=== PATIENT | female | born 1965 | race Caucasian/White ===

== ENCOUNTER 2018-03-07 16:15 | Emergency (ER) | payer OTHER ==
[~2018-03-07] VITALS: Ht 170.2 cm; Wt 83.9 kg
--- NOTE | ~2018-03-07 | PROC ---
[address] [address] PROCEDURE REPORT Name: MATTHIEU CARDONA Room: [facility] Navya#: [id number] Admission: 03/07/18 Attend Phys: Discharge: 03/07/18 Date of : 67 Report #: [id number] THIS REPORT FOR: //name// For GI report, please see the Provation report in Perceptive 7 content. By: 1535Medical Records Staff [facility] /SHAHEED
[2018-03-07] MEDS ORDERED: ATENOLOL 25 MG25 M1 PO (16:19)
[2018-03-07] MEDS ORDERED: PAXIL 20 MG TAB20 MG PO (16:41)
[2018-03-07] MEDS ORDERED: SYNTHROID25 MC1 PO (16:41)
[2018-03-07 16:58] LABS: ABSOLUTE BASOPHILS 0.1 thou/uL (0.0-0.2); ABSOLUTE EOSINOPHILS 0.2 thou/uL (0.0-0.7); ABSOLUTE LYMPHOCYTES 1.9 thou/uL (0.8-5.3); ABSOLUTE MONOCYTES 0.7 thou/uL (0.0-1.2); ABSOLUTE NEUTROPHILS 5.8 thou/uL (1.6-8.1); BASOPHILS 1.5 %; EOSINOPHILS 2.2 %; HEMATOCRIT 40.6 % (37.0-47.0); HEMOGLOBIN 13.5 gm/dL (12.0-15.0); LYMPHOCYTES 21.9 %; MCH 28.9 pg (26.0-34.0); MCHC 33.2 g/dL (28.0-37.0); MCV 87.1 fL (80.0-100.0); MONOCYTES 7.6 %; NUCLEATED RBCS 0 /100WBC; PLATELET COUNT* 440 thou/uL (150-400); POLYS 66.8 %; RBC 4.66 mil/uL (4.20-5.00); RDW-CV 13.3 % (10.5-14.5); WBC 8.6 thou/uL (4.0-11.0)
[2018-03-07 17:04] LABS: ANION GAP 5 mmol/L (7-16); BUN 11 mg/dL (7-18); CALCIUM 8.3 mg/dL (8.5-10.1); CHLORIDE 102 mmol/L (98-107); CO2 28 mmol/L (21-32); CREATININE 0.7 mg/dL (0.6-1.3); GLUCOSE 112 mg/dL (70-99); POTASSIUM 3.5 mmol/L (3.5-5.1); SODIUM 135 mmol/L (136-145)
[2018-03-07 17:11] LABS: ALBUMIN 3.5 g/dL (3.4-5.0); ALKALINE PHOSPHATASE 112 U/L (46-116); LIPASE 137 U/L (73-393); SGOT 18 U/L (15-37); SGPT 17 U/L (30-65); TOTAL BILIRUBIN 0.3 mg/dL (<0.1-1.0); TOTAL PROTEIN 7.3 g/dL (6.4-8.2); TROPONIN-I LEVEL <0.06 ng/mL (<0.06)
[2018-03-07 17:21] LABS: URINE BILIRUBIN NEGATIVE (Negative); URINE BLOOD 1+ (Negative); URINE CLARITY HAZY; URINE COLOR YELLOW; URINE GLUCOSE-RANDOM NEGATIVE (Negative); URINE KETONES NEGATIVE (Negative); URINE LEUKOCYTES 1+ (Negative); URINE NITRITE NEGATIVE (Negative); URINE PROTEIN NEGATIVE (Negative); URINE UROBILINOGEN 0.2 E.U./dl (0.2-1.0)
[2018-03-07 17:28] LABS: SQUAMOUS >10 Many /LPF (0-3)
[2018-03-07 17:29] LABS: BACTERIA None Seen /HPF (None Seen); CASTS None Seen /LPF (None Seen); CRYSTALS None Seen /LPF (None Seen); MUCUS 0-3 Light strn/LPF (None Seen); URINE RBC 0-2 Rare /HPF (0-2); URINE WBC 0-5 Rare /HPF (0-5)
[2018-03-07 18:17] LABS: INR 0.9; PROTIME 9.4 Seconds (9.20-11.50)
[2018-03-07 18:37] VITALS: BP 131/76
--- NOTE | 2018-03-09 12:48 | EKG ---
[place] [address] ELECTROCARDIOGRAM REPORT Name: MATTHIEU CARDONA Room: [facility]#: [id number] Admission: 03/07/18 Attend Phys: Discharge: 03/07/18 Date of : 67 Report #: [id number] THIS REPORT FOR: //name// [facility] ED Test Date: 2018-03-07 Test Time: 16:59:14 Pat Name: MATTHIEU CARDONA Department: Room: Gender: F [employer]: AUTUMN : 1965 Requested By: Gayla Gaston Order Number: [id number] MD: Jasiel Mcmillan Measurements Intervals [place] Rate: 69 P: 38 MD: 179 QRS: 38 QRSD: 121 T: 41 QT: 436 QTc: 467 Interpretive Statements Sinus rhythm Nonspecific intraventricular conduction delay No previous ECG available for comparison Electronically Signed On 03-09-2018 12:48:05 CDT by Jasiel Mcmillan [email or web address] <ELECTRONICALLY SIGNED> By: Jasiel Mcmillan MD, FACC 03/09/18 1248 1659 1659 Jasiel Mcmillan MD, FACC /EPI
--- NOTE | 2018-03-10 15:06 | PATH ---
[facility] [address] [place] [address] PATHOLOGY RPT PROCEDURE Name: EDILIA CARDONA Room: [facility] JAKI Mendosa#: [id number] Admission: 03/07/18 Date of : 67 Discharge: 03/07/18 Report #: [id number] Path Case #: [id number] [facility] Accession Number: [id number] . 01 Material submitted: . PART A: BIOPSY OF ESOPHAGUS 30 CM PART B: BIOPSY OF ESOPHAGUS 35 CM . 01 Clinical history: . Food bolus Schatzki's ring . 02 Diagnosis: A. Biopsy of esophagus 30 cm: - Moderate chronic esophagitis with abundance of eosinophils compatible with eosinophilic (allergic) esophagitis, with mild fibrosis. See comment. . B. Biopsy of esphagus 35 cm: - Moderate chronic esophagitis with prominence of eosinophils compatible with eosinophilic (allergic) esophagitis. See comment. . (DANIEL:fausto; 03/10/2018) QMS/03/10/2018 . 02 Comment: Both of the biopsies show variable numbers of eosinophils noted to be more prominent in the 30 cm biopsy (A), where they average at least 25 per high power field and where there is also prominent basilar cell hyperplasia. (DANIEL:fausto; 03/10/2018) . 02 Electronically signed: . Breezy Elliott MD, Pathologist NPI- [id number] . 01 Gross description: . A. The specimen is received in formalin, labeled "Edilia Cardona, BX of esophagus 30 cm" and consists of 2 translucent fragments of soft nowak tissue measuring 0.8 x 0.4 x 0.1 cm and 0.4 x 0.3 x 0.1 cm. They are entirely submitted in A1. . B. The specimen is received in formalin, labeled "Edilia Cardona, BX of esophagus 35 cm" and consists of 3 translucent fragments of soft nowak tissue measuring between 0.4 x 0.3 x 0.1 cm and 0.1 x 0.1 x 0.1 cm. They are entirely submitted in B1. (SDY; 03/09/2018) SYU/SYU . [address] [place] [address] PATHOLOGY RPT PROCEDURE Name: EDILIA CARDONA [id number] Admission: 03/07/18 Date of : 67 Discharge: 03/07/18 Report #: [id number] Path Case #: [id number] Pathologist provided ICD-10: K20.9 . 02 CPT . 242010, [id number] Performed at: [address], [place], [place] [id number] MD Bradley Mcclain MD Phone: [phone] Performed at: 02 [facility] [address], [place], [place] [id number] MD Breezy Elliott MD Phone: [phone]
== END 2018-03-07 18:52 | disposition home or self-care (01) ==
LOC: M.ERS 16:15 → M.CL 16:15
PROVIDERS: Nurse Practitioner Family
DX: T17.298A Other foreign object in pharynx causing other injury, initial encounter (principal); I10 Essential (primary) hypertension; Z88.2 Allergy status to sulfonamides; X58.XXXA Exposure to other specified factors, initial encounter; Y93.89 Activity, other specified; Y92.89 Other specified places as the place of occurrence of the external cause; Y99.8 Other external cause status